=== PATIENT | female | born 1965 | race Caucasian/White ===

== ENCOUNTER → 2020-11-27 14:09 | Outpatient (CLI) | payer OTHER, SELFPAY ==
[2020-11-27 15:41] LABS: Add Manual Diff / Slide Review NO; Basophils Absolute Auto 100 /uL (0-100); Basophils Percent Auto 1.8 % (0-2); Eosinophils Absolute Auto 100 /uL (0-450); Eosinophils Percent Auto 2.2 % (2-4); Hematocrit 40.8 % (36-46); Hemoglobin 13.9 g/dL (12.0-16.0); Lymphocytes Absolute Auto 1600 /uL (1100-4500); Lymphocytes Percent Auto 36.4 % (25-40); Mean Corpuscular HGB Conc 34.1 % (30-36); Mean Corpuscular Hemoglobin 31.5 PG (26-34); Mean Corpuscular Volume 92.5 fL (80-100); Monocytes Absolute Auto 400 /uL (0-900); Monocytes Percent Auto 8.3 % (3-14); Neutrophils Absolute Auto 2300 /uL (1500-7000); Neutrophils Percent Auto 51.3 % (50-75); Platelet Count 188 X10^3/uL (150-400); Red Blood Cell Count 4.41 X10^6/uL (4.0-5.2); Red Cell Distribution Width 12.9 % (11.6-14.8); White Blood Cell Count 4.5 X10^3/uL (4.5-11.0)
[2020-11-27 16:56] LABS: HEMOLYSIS < 15 (0-50); Iron 87 ug/dL (37-170)
[2020-11-27 16:59] LABS: BUN Creatinine Ratio 16.2 (6-22); Blood Urea Nitrogen 11 mg/dL (7-17); Cholesterol 159 mg/dL (140-199); Estimated Glomerular Filt Rate > 60.0 mL/min (>60); HDL Cholesterol 62 mg/dL (40-60); LDL Cholesterol Calculated 84 mg/dL (<100); Triglycerides 67 mg/dL (35-150)
[2020-11-27 17:14] LABS: Percent Iron Saturation 28 % (15-50); Total Iron Binding Capacity 311 ug/dL (265-497); Transferrin 257 mg/dL (206-381)
[2020-11-27 17:40] LABS: Vitamin B12 606 pg/mL (239-931)
== END ==
PROVIDERS: PCP Student in an Organized Health Care Education/Training Program; Referring Provider Student in an Organized Health Care Education/Training Program; Visit Provider Student in an Organized Health Care Education/Training Program
DX: E61.1 Iron deficiency (principal); R53.83 Other fatigue; Z78.9 Other specified health status; Z79.899 Other long term (current) drug therapy; Z13.220 Encounter for screening for lipoid disorders
CPT/HCPCS: 36415; 80061; 82565; 82607; 83540; 83550; 84520; 85025

== ENCOUNTER → 2021-01-01 16:37 | Outpatient (CLI) | payer OTHER, SELFPAY ==
--- NOTE | 2021-01-01 16:38 | DI.MG.S_ITS ---
BILATERAL DIGITAL SCREENING MAMMOGRAM 3D/2D WITH CAD: 01/01/2021 CLINICAL: Routine screening. Comparison is made to exams dated: 01/28/2018 mammogram, 09/17/2016 mammogram, and 07/27/2013 mammogram - outside location. The tissue of both breasts is extremely dense, which lowers the sensitivity of mammography. Current study was also evaluated with a Computer Aided Detection (CAD) system. No significant masses, calcifications, or other findings are seen in either breast. There has been no significant interval change. IMPRESSION: NEGATIVE There is no mammographic evidence of malignancy. A 1 year screening mammogram is recommended. This exam was interpreted at Station ID: [id number]. NOTE: For mammograms, a report in lay terms will be sent to the patient. Approximately 15% of breast malignancies will not be visualized mammographically. In the management of a palpable breast mass, a negative mammogram must not discourage biopsy of a clinically suspicious lesion. Electronically Signed By: Solomon [email or web address]:01/02/2021 07:58:45 letter sent: Normal Exam ACR BI-RADS Category 1: Negative 3341F
== END ==
PROVIDERS: PCP Student in an Organized Health Care Education/Training Program; Referring Provider Student in an Organized Health Care Education/Training Program; Visit Provider Student in an Organized Health Care Education/Training Program
DX: Z12.31 Encounter for screening mammogram for malignant neoplasm of breast (principal)
CPT/HCPCS: 77063; 77067

== ENCOUNTER → 2022-01-03 15:29 | Outpatient (CLI) | payer OTHER, SELFPAY ==
--- NOTE | 2022-01-03 15:30 | DI.MG.S_ITS ---
BILATERAL DIGITAL SCREENING MAMMOGRAM 3D/2D WITH CAD: 01/03/2022 CLINICAL: Routine screening. Comparison is made to exams dated: 01/01/2021 mammogram - [facility], 01/28/2018 mammogram, 09/17/2016 mammogram, and 07/27/2013 mammogram - outside location. The tissue of both breasts is extremely dense, which lowers the sensitivity of mammography. Current study was also evaluated with a Computer Aided Detection (CAD) system. No significant masses, calcifications, or other findings are seen in either breast. There has been no significant interval change. IMPRESSION: NEGATIVE There is no mammographic evidence of malignancy. A 1 year screening mammogram is recommended. This exam was interpreted at Station ID: [id number]. NOTE: For mammograms, a report in lay terms will be sent to the patient. Approximately 15% of breast malignancies will not be visualized mammographically. In the management of a palpable breast mass, a negative mammogram must not discourage biopsy of a clinically suspicious lesion. Electronically Signed By: Homer [email or web address]:01/06/2022 07:56:17 letter sent: Normal Exam ACR BI-RADS Category 1: Negative 3341F
== END ==
PROVIDERS: PCP Student in an Organized Health Care Education/Training Program; Referring Provider Student in an Organized Health Care Education/Training Program; Visit Provider Student in an Organized Health Care Education/Training Program
DX: Z12.31 Encounter for screening mammogram for malignant neoplasm of breast (principal)
CPT/HCPCS: 77063; 77067

== ENCOUNTER → 2022-11-12 10:18 | Outpatient (CLI) | payer OTHER, SELFPAY ==
[2022-11-12 11:29] LABS: Add Manual Diff / Slide Review NO; Basophils Absolute Auto 0 /uL (0-100); Eosinophils Absolute Auto 100 /uL (0-450); Eosinophils Percent Auto 1.5 % (2-4); Hematocrit 39.4 % (36-46); Hemoglobin 13.3 g/dL (12.0-16.0); Lymphocytes Absolute Auto 1000 /uL (1100-4500); Lymphocytes Percent Auto 22.2 % (25-40); Mean Corpuscular HGB Conc 33.7 % (30-36); Mean Corpuscular Hemoglobin 31.2 PG (26-34); Mean Corpuscular Volume 92.6 fL (80-100); Monocytes Absolute Auto 500 /uL (0-900); Monocytes Percent Auto 10.5 % (3-14); Neutrophils Absolute Auto 3000 /uL (1500-7000); Neutrophils Percent Auto 64.8 % (50-75); Platelet Count 176 X10^3/uL (150-400); Red Blood Cell Count 4.25 X10^6/uL (4.0-5.2); Red Cell Distribution Width 12.6 % (11.6-14.8); White Blood Cell Count 4.7 X10^3/uL (4.5-11.0)
[2022-11-12 12:04] LABS: Erythrocyte Sedimentation Rate 6 MM/HR (0-20)
[2022-11-12 12:08] LABS: Alanine Aminotransferase 18 IU/L (<35); Albumin 4.4 g/dL (3.5-5.0); Albumin Globulin Ratio 1.4 (1.0-2.8); Alkaline Phosphatase 78 U/L (38-126); Aspartate Aminotransferase 30 IU/L (14-36); BUN Creatinine Ratio 26.4 (6-22); Bilirubin Total 0.6 mg/dL (0.2-1.3); Blood Urea Nitrogen 19 mg/dL (7-17); C-Reactive Protein Quant < 0.5 mg/dL (<1.0); Calcium 8.8 mg/dL (8.4-10.2); Carbon Dioxide 23 mmol/L (22-32); Chloride 104 mmol/L (98-107); Estimated Glomerular Filt Rate > 60 mL/min (>60); Globulin 3.2 g/dL (1.7-4.1); Glucose 83 mg/dL (70-100); HEMOLYSIS < 15 (0-50); Magnesium 2.2 mg/dL (1.6-2.3); Potassium 3.8 mmol/L (3.4-5.1); Sodium 139 mmol/L (137-145); Total Protein 7.6 g/dL (6.3-8.2)
[2022-11-12 12:11] LABS: Rheumatoid Factor < 8.6 IU/mL (<12.0)
[2022-11-12 12:22] LABS: Vitamin D 25 Hydroxy (D3) 23.7 ng/mL (30.0-100.0)
[2022-11-12 12:55] LABS: Vitamin B12 261 pg/mL (239-931)
[2022-11-12 13:07] LABS: TSH w/ Reflex to FT4 0.58 uIU/mL (0.47-4.68)
[2022-11-13 17:13] LABS: Hep C Virus Ab w/Reflex Quant NEGATIVE s/c (NEGATIVE)
[2022-11-17 15:43] LABS: ANA Screen, IFA Positive (.)
== END ==
PROVIDERS: PCP Student in an Organized Health Care Education/Training Program; Referring Provider Student in an Organized Health Care Education/Training Program; Visit Provider Student in an Organized Health Care Education/Training Program
DX: M13.0 Polyarthritis, unspecified (principal); R25.2 Cramp and spasm; R41.89 Other symptoms and signs involving cognitive functions and awareness; R45.86 Emotional lability; Z11.59 Encounter for screening for other viral diseases
CPT/HCPCS: 36415; 80053; 82306; 82607; 83735; 84443; 85025; 85651; 86038; 86140; 86430; 86803

== ENCOUNTER → 2023-01-07 14:08 | Outpatient (CLI) | payer OTHER, SELFPAY ==
--- NOTE | 2023-01-07 14:09 | DI.MG.S_ITS ---
BILATERAL DIGITAL SCREENING MAMMOGRAM 3D/2D WITH CAD: 01/07/2023 CLINICAL: Routine screening. Comparison is made to exams dated: 01/03/2022 mammogram, 01/01/2021 mammogram - [facility], and 01/28/2018 mammogram - outside location. Both breasts are extremely dense, which lowers the sensitivity of mammography (category d />75% glandular tissue). Current study was also evaluated with a Computer Aided Detection (CAD) system. No significant masses, calcifications, or other findings are seen in either breast. There has been no significant interval change. IMPRESSION: NEGATIVE There is no mammographic evidence of malignancy. A 1 year screening mammogram is recommended. Based on the Tyrer Cuzick model (a risk assessment model) the patient's lifetime risk is 15.2% and her 10 year risk is 5.7%. According to the ACR, ACS, and NCCN guidelines, an annual breast MRI exam along with mammogram is recommended if the patient's lifetime risk is 20% or greater. This exam was interpreted at Station ID: [id number]. NOTE: For mammograms, a report in lay terms will be sent to the patient. Approximately 15% of breast malignancies will not be visualized mammographically. In the management of a palpable breast mass, a negative mammogram must not discourage biopsy of a clinically suspicious lesion. Electronically Signed By: Anya [email or web address]:01/07/2023 15:42:33 letter sent: Normal Exam ACR BI-RADS Category 1: Negative 3341F
== END ==
PROVIDERS: PCP Student in an Organized Health Care Education/Training Program; Referring Provider Student in an Organized Health Care Education/Training Program; Visit Provider Student in an Organized Health Care Education/Training Program
DX: Z12.31 Encounter for screening mammogram for malignant neoplasm of breast (principal)
CPT/HCPCS: 77063; 77067